=== PATIENT | female | born 1985 | race Caucasian/White ===

== ENCOUNTER 2019-01-03 10:16 | Emergency (ER) | payer OTHER ==
[2019-01-03 10:44] VITALS: BP 106/67; PULSE 82; TEMP 98.2; BMI 25.7
[2019-01-03] MEDS ORDERED: RANITIDINE HCL 150 MG TABLET (FP) ONE (11:17)
[2019-01-03] MEDS ORDERED: MAG HYDROX/AL HYDROX/SIMETH 30 ML UNIT-DOSE CUP ONE (11:18)
[2019-01-03] MEDS ORDERED: RANITIDINE HCL 150 MG TABLET (FP) PO ONE (11:18)
[2019-01-03] MEDS ORDERED: MAG HYDROX/AL HYDROX/SIMETH 30 ML UNIT-DOSE CUP PO ONE (11:18)
--- NOTE | 2019-01-03 11:19 | PDOC ---
History of Present Illness - General Chief Complaint: Pain Stated Complaint: ABD PAIN Time Seen by Provider: 01/03/19 11:02 History Source: Patient - History of Present Illness Timing/Duration: reports: intermittent Past History - Past Medical History Allergies/Adverse Reactions: Allergies Allergy/AdvReac Type Severity Reaction Status Date / Time No Known Allergies Allergy Verified 01/03/19 10:38 Home Medications: Ambulatory Orders Famotidine [Pepcid] 20 mg PO DAILY #14 tablet 01/03/19 COPD: No - Suicide/Smoking/Psychosocial Hx Smoking History: Never smoked Have you smoked in the past 12 months: No Hx Alcohol Use: No Drug/Substance Use Hx: No Substance Use Type: None Review of Systems - Review of Systems Constitutional: No: Chills, Fever ABD/GI: Yes: Diarrhea, Nausea, Abdominal cramping. No: Blood Streaked Bowels, Constipated, Rectal Bleeding, Vomiting : No: Dysuria, Flank Pain, Hematuria *Physical Exam - Vital Signs Last Vital Signs Temp Pulse Resp BP Pulse Ox 98.2 F 82 18 106/67 99 01/03/19 10:40 01/03/19 10:40 01/03/19 10:40 01/03/19 10:40 01/03/19 10:40 - Physical Exam General Appearance: Yes: Appropriately Dressed. No: Apparent Distress HEENT: positive: Normal Voice Neck: positive: Supple Respiratory/Chest: negative: Respiratory Distress Gastrointestinal/Abdominal: positive: Normal Bowel Sounds, Tender, Soft. negative: Distended, Guarding, Rebound Musculoskeletal: negative: CVA Tenderness Integumentary: positive: Dry, Warm Neurologic: positive: Fully Oriented, Alert, Normal Mood/Affect Moderate Sedation - Procedure Monitoring Vital Signs: Procedure Monitoring Vital Signs Temperature 98.2 F 01/03/19 10:40 Pulse Rate 82 01/03/19 10:40 Respiratory Rate 18 01/03/19 10:40 Blood Pressure 106/67 01/03/19 10:40 O2 Sat by Pulse Oximetry (%) 99 01/03/19 10:40 ED Treatment Course - LABORATORY CBC & Chemistry Diagram: 01/03/19 11:18 01/03/19 11:18 Medical Decision Making - Medical Decision Making 01/03/19 11:12 33 yo F, no sig hx, here w/ abd pain. Complaining of on and off epigastric pain with 3-4 episodes of non-bloody watery stool and nausea for 3 days. No vomiting, hematochezia, melena, fever or chills. Symptoms started shortly after eating pasta at restaurant. States her son ate the same and has similar symptoms. No recent travel or antibiotic use See exam Possibly gastroenteritis vs gastritis, unlikely biliary or pancreatitis, no ttp over mcburneys to suspect appy at this time Well dayan and stable w/ ttp to epigastrium -pain control -labs -reassess 01/03/19 13:00 Labs unremarkable. Pt reports sig improvement w/ meds nd able to mamta po. Pt non- tender on rpt abdominal exam. Will dc w/ supportive tx. Reasons to return d/w pt *DC/Admit/Observation/Transfer Diagnosis at time of Disposition: Epigastric abdominal pain Diarrhea Qualifiers: Diarrhea type: unspecified type Qualified Code(s): R19.7 - Diarrhea, unspecified - Discharge Dispostion Disposition: HOME Condition at time of disposition: Improved - Prescriptions Prescriptions: Famotidine [Pepcid] 20 mg PO DAILY #14 tablet - Referrals - Patient Instructions Printed Discharge Instructions: DI for Viral Gastroenteritis -- Adult Additional Instructions: Maintain adequate hydration, for the remainder of your symptoms, and eat as tolerated Take pepcid as directed Return for any worsening of symptoms Please follow up with your primary care physician as needed - Post Discharge Activity Forms/Work/School Notes: Back to Work
[2019-01-03 11:33] LABS: BASO % 0.4 % (0-2.0); EOS % 0.7 % (0-4.5); HEMOGLOBIN 14.2 GM/dL (10.7-15.3); LYMPH % 8.8 % (8-40); MCH 31.2 pg (25.7-33.7); MCHC 35.5 g/dl (32.0-36.0); MEAN CELL VOLUME 87.9 fl (80-96); MEAN PLT VOLUME 9.2 fl (7.5-11.1); MONO % 6.7 % (3.8-10.2); NEUT % 83.4 % (42.8-82.8); PLATELET COUNT 254 K/MM3 (134-434); RBC 4.55 M/mm3 (3.60-5.2); RDW 12.3 % (11.6-15.6)
[2019-01-03 12:05] LABS: HCG,QUALITATIVE URINE Negative
[2019-01-03 12:07] LABS: ALBUMIN 3.7 g/dl (3.4-5.0); ALK PHOS 98 U/L (45-117); ANION GAP 4 MMOL/L (8-16); BILIRUBIN,TOTAL 0.6 mg/dL (0.2-1); BLOOD UREA NITROGEN 9 mg/dL (7-18); CALCIUM 8.6 mg/dL (8.5-10.1); CHLORIDE 106 mmol/L (98-107); CO2 27 mmol/L (21-32); CREATININE 0.7 mg/dL (0.55-1.3); GLUCOSE,RANDOM 87 mg/dL (74-106); LIPASE 162 U/L (73-393); POTASSIUM 4.2 mmol/L (3.5-5.1); SGOT/AST 13 U/L (15-37); SGPT/ALT 27 U/L (13-61); SODIUM 136 mmol/L (136-145)
[2019-01-03 12:21] LABS: URINE APPEARANCE CLEAR; URINE BILIRUBIN NEGATIVE (<2.0 mg/dL); URINE COLOR STRAW; URINE GLUCOSE (UA) NEGATIVE (NEGATIVE); URINE KETONE NEGATIVE (NEGATIVE); URINE LEUK ESTERASE 1+ (NEGATIVE); URINE NITRITE NEGATIVE (NEGATIVE); URINE PROTEIN NEGATIVE (NEGATIVE); URINE UROBILINOGEN NEGATIVE mg/dL (0.2-1.0)
[2019-01-03 12:41] LABS: EPI CELLS RARE /HPF (FEW); URINE MUCUS RARE
== END 2019-01-03 13:10 | disposition home or self-care (01) ==
LOC: JER 10:16
DX: A08.4 Viral intestinal infection, unspecified (principal); B97.89 Other viral agents as the cause of diseases classified elsewhere
CPT/HCPCS: 36415; 80053; 81003; 81015; 83690; 84703; 85025; 99281-25

== ENCOUNTER 2019-05-01 09:07 | Emergency (ER) | payer OTHER ==
[2019-05-01 09:13] VITALS: TEMP 98; BMI 29.2
[2019-05-01] MEDS ORDERED: KETOROLAC TROMETHAMINE 60 MG/2 ML VIAL IM ONE (09:34)
[2019-05-01] MEDS ORDERED: KETOROLAC TROMETHAMINE 60 MG/2 ML VIAL ONE (09:44)
--- NOTE | 2019-05-01 10:07 | PDOC ---
History of Present Illness - General Chief Complaint: Chest Pain Stated Complaint: CHEST PAIN Time Seen by Provider: 05/01/19 09:28 History Source: Patient Exam Limitations: No Limitations - History of Present Illness Initial Comments: 05/01/19 10:07 33-year-old female presents to ED with complaints of left-sided chest soreness while at work today at around 6 AM. Patient states had no palpitations or shortness of breath was episodes. Patient states pain is worsened with movement and now is radiating to her left arm. Patient denies cardiac history, difficulty breathing, recent travel, recent illness or recent fall Presenting Symptoms: Chest Pain Timing/Duration: reports: constant Severity/Quality: reports: mild, aching Location: reports: substernal Chest Pain Radiation: reports: arms Activities at Onset: reports: none Prior Chest Pain/Cardiac Workup: reports: No prior chest pain Modifying Factors: improves with: movement Nitro Today/Relief: Yes: no nitro taken today Aspirin Received prior to arrival (Core Measure): Yes: no aspirin today Beta Norris given by EMS (Core Measure): No Beta Norris taken at Home (Core Measure): No Beta Norris indicated at this time? (Core Measure): No Associated Symptoms: Yes: Chest Pain/pressure Past History - Travel Traveled outside of the country in the last 30 days: No Close contact w/someone who was outside of country & ill: No - Past Medical History Allergies/Adverse Reactions: Allergies Allergy/AdvReac Type Severity Reaction Status Date / Time No Known Allergies Allergy Verified 05/01/19 09:10 Home Medications: Ambulatory Orders Famotidine [Pepcid] 20 mg PO DAILY #14 tablet 01/03/19 COPD: No - Immunization History Immunization Up to Date: Yes - Suicide/Smoking/Psychosocial Hx Smoking History: Never smoked Have you smoked in the past 12 months: No Hx Alcohol Use: No Drug/Substance Use Hx: No Substance Use Type: None Patient Lives Alone: No Lives with/in: spouse/SO Review of Systems - Review of Systems Able to Perform ROS?: No Is the patient limited Indonesian proficient: No Constitutional: No: Symptoms Reported HEENTM: No: Symptoms Reported Respiratory: No: Symptoms reported Cardiac (ROS): Yes: Chest Pain. No: Lightheadedness, Palpitations, Syncope ABD/GI: No: Symptoms Reported : No: Symptoms Reported Musculoskeletal: Yes: Muscle Pain (left upper arm achiness/soreness) Integumentary: No: Symptoms Reported Neurological: No: Symptoms reported Hematologic/Lymphatic: No: Symptoms Reported *Physical Exam - Vital Signs Last Vital Signs Temp Pulse Resp BP Pulse Ox 98 F 72 17 105/66 100 05/01/19 09:10 05/01/19 09:10 05/01/19 09:10 05/01/19 09:10 05/01/19 09:53 - Physical Exam General Appearance: Yes: Nourished, Appropriately Dressed. No: Apparent Distress HEENT: negative: Pale Conjunctivae Neck: positive: Supple Respiratory/Chest: positive: Chest Tender (left upper anterior chest at second to fourth intercostal spaces extending from sternum to the lateral aspect of midclavicular line), Lungs Clear, Normal Breath Sounds. negative: Respiratory Distress, Accessory Muscle Use Cardiovascular: positive: Regular Rhythm, Regular Rate. negative: Murmur Gastrointestinal/Abdominal: positive: Soft. negative: Tenderness Extremity: positive: Normal Inspection, Normal Range of Motion. negative: Tender Integumentary: positive: Normal Color, Warm, Moist Neurologic: positive: Motor Strength 5/5 (ambulatory) Heart Score/ECG Review - ECG Intrepretation Rhythm: Regular Rhythm (rate 69, sinus arrhymia. no st elevation/depression) ED Treatment Course - LABORATORY CBC & Chemistry Diagram: 05/01/19 09:51 05/01/19 09:54 - ADDITIONAL ORDERS Additional order review: Laboratory Results 05/01/19 09:54 Sodium 140 Potassium 4.3 Chloride 108 H Carbon Dioxide 28 Anion Gap 4 L BUN 12.4 Creatinine 0.7 Est GFR (CKD-EPI)AfAm 132.87 Est GFR (CKD-EPI)NonAf 114.64 Random Glucose 99 Calcium 9.2 Total Bilirubin 0.2 AST 15 ALT 25 Alkaline Phosphatase 92 Creatine Kinase 81 Troponin I < 0.02 Total Protein 8.3 H Albumin 4.0 05/01/19 09:51 RBC 4.68 MCV 85.6 MCHC 34.7 RDW 12.8 MPV 9.2 Neutrophils % 85.0 H Lymphocytes % 11.2 D Monocytes % 3.1 L Eosinophils % 0.2 Basophils % 0.5 - Medications Given in the ED: ED Medications Discontinued Medications Generic Name Dose Route Start Last Admin Trade Name Freq PRN Reason Stop Dose Admin Ketorolac Tromethamine 60 mg 05/01/19 09:34 05/01/19 09:55 Toradol Injection - IM 05/01/19 09:35 60 mg ONCE ONE Administration Medical Decision Making - Medical Decision Making 05/01/19 10:03 Plan: Left-sided chest soreness that began while at work shortly after lifting items at work. Patient states pain is not radiating to left arm which describes an aching soreness sensation. Patient has no other complaints at this time Exam: Reproducible left-sided chest pain over the second to fourth intercostal space anteriorly Plan: EKG, labs and Toradol 05/01/19 11:02 Laboratory Tests 05/01/19 05/01/19 09:51 09:54 WBC 8.2 RBC 4.68 Hct 40.1 MCV 85.6 Neutrophils % 85.0 H Monocytes % 3.1 L Sodium 140 Potassium 4.3 Chloride 108 H Carbon Dioxide 28 Anion Gap 4 L Calcium 9.2 AST 15 ALT 25 Creatine Kinase 81 Troponin I < 0.02 Total Protein 8.3 H Albumin 4.0 Patient states symptoms have improved. Patient be discharged home with costochondritis information *DC/Admit/Observation/Transfer Diagnosis at time of Disposition: Costochondritis - Discharge Dispostion Disposition: HOME Condition at time of disposition: Improved - Referrals - Patient Instructions Printed Discharge Instructions: DI for Costochondritis Additional Instructions: Please take Tylenol as prescribed. Avoid movements that trigger discomfort. If symptoms worsen despite above recommendations, please return to ED and follow -up with your physician. - Post Discharge Activity
[2019-05-01 10:16] LABS: BASO % 0.5 % (0-2.0); EOS % 0.2 % (0-4.5); HEMATOCRIT 40.1 % (32.4-45.2); HEMOGLOBIN 13.9 GM/dL (10.7-15.3); LYMPH % 11.2 % (8-40); MCH 29.7 pg (25.7-33.7); MCHC 34.7 g/dl (32.0-36.0); MEAN CELL VOLUME 85.6 fl (80-96); MEAN PLT VOLUME 9.2 fl (7.5-11.1); MONO % 3.1 % (3.8-10.2); PLATELET COUNT 287 K/MM3 (134-434); RBC 4.68 M/mm3 (3.60-5.2); RDW 12.8 % (11.6-15.6); WHITE BLOOD COUNT 8.2 K/mm3 (4.0-10.0)
[2019-05-01 10:54] LABS: ALK PHOS 92 U/L (45-117); ANION GAP 4 MMOL/L (8-16); BILIRUBIN,TOTAL 0.2 mg/dL (0.2-1); BLOOD UREA NITROGEN 12.4 mg/dL (7-18); CALCIUM 9.2 mg/dL (8.5-10.1); CHLORIDE 108 mmol/L (98-107); CO2 28 mmol/L (21-32); CREATININE 0.7 mg/dL (0.55-1.3); GLUCOSE,RANDOM 99 mg/dL (74-106); POTASSIUM 4.3 mmol/L (3.5-5.1); SGOT/AST 15 U/L (15-37); SGPT/ALT 25 U/L (13-61); SODIUM 140 mmol/L (136-145); TOT PROT 8.3 g/dl (6.4-8.2)
[2019-05-01 11:05] VITALS: BP 108/59; PULSE 84
--- NOTE | 2019-05-01 14:37 | EKG ---
Test Reason : Blood Pressure : / mmHG Vent. Rate : 069 BPM Atrial Rate : 069 BPM P-R Int : 138 ms QRS Dur : 100 ms QT Int : 380 ms P-R-T Axes : 065 067 034 degrees QTc Int : 407 ms NORMAL SINUS RHYTHM WITH SINUS ARRHYTHMIA INCOMPLETE RIGHT BUNDLE BRANCH BLOCK BORDERLINE ECG NO PREVIOUS ECGS AVAILABLE Confirmed by NICK RENDON, KIKE ([id number]) on 05/01/2019 2:37:07 PM Referred By: Confirmed By:KIKE ROMERO MD
== END 2019-05-01 11:07 | disposition home or self-care (01) ==
LOC: JER 09:07
PROC: 3E0233Z Introduction of Anti-inflammatory into Muscle, Percutaneous Approach (ICD-10-PCS; principal; 2019-05-01)
DX: M94.0 Chondrocostal junction syndrome [Tietze] (principal)
CPT/HCPCS: 36415; 80053; 82550; 84484; 85025; 93005; 93010; 96372; 99283-25

== ENCOUNTER 2021-12-24 17:01 | Emergency (ER) | payer OTHER ==
[2021-12-24 17:31] VITALS: BP 114/61; PULSE 77; TEMP 97.9; BMI 31.4
[2021-12-24] MEDS ORDERED: KETOROLAC TROMETHAMINE 30 MG/1 ML VIAL IM ONE (19:07)
[2021-12-24] MEDS ORDERED: KETOROLAC TROMETHAMINE 30 MG/1 ML VIAL ONE (19:23)
== END 2021-12-24 21:41 | disposition home or self-care (01) ==
LOC: JERFT 17:01
PROC: 3E023GC Introduction of Other Therapeutic Substance into Muscle, Percutaneous Approach (ICD-10-PCS; principal; 2021-12-24)
DX: S80.01XA Contusion of right knee, initial encounter (principal); W01.0XXA Fall on same level from slipping, tripping and stumbling without subsequent striking against object, initial encounter
CPT/HCPCS: 73564-TC-RT-FY; 99284-25

== ENCOUNTER 2023-01-01 08:46 | Emergency (ER) | payer OTHER ==
[2023-01-01 09:01] VITALS: BP 120/81; PULSE 93; RESP 20; TEMP 98.8; BMI 30.2
[2023-01-01] MEDS ORDERED: ALBUTEROL SO4 2.5/IPRATROPIUM 0.5 INH SOL 3 ML VIAL.NEB. NEB ONE ×2 (10:14→10:19)
[2023-01-01] MEDS ORDERED: predniSONE 20 MG TABLET (UD) PO ONE (10:14)
[2023-01-01] MEDS ORDERED: predniSONE 20 MG TABLET (UD) ONE (10:19)
== END 2023-01-01 12:27 | disposition home or self-care (01) ==
LOC: JERFT 08:46 → JER 08:46 → JERFT 12:27
PROC: 3E0F7GC Introduction of Other Therapeutic Substance into Respiratory Tract, Via Natural or Artificial Opening (ICD-10-PCS; principal; 2023-01-01)
DX: J45.21 Mild intermittent asthma with (acute) exacerbation (principal); Z20.822 Contact with and (suspected) exposure to COVID-19
CPT/HCPCS: 0241U-QW; 71046-TC-FY; 99284-25

== ENCOUNTER 2023-09-17 21:04 | Emergency (ER) | payer OTHER ==
[2023-09-17 21:10] VITALS: RESP 18; TEMP 98; BMI 30.2
[2023-09-17] MEDS ORDERED: ACETAMINOPHEN 325 MG TABLET (FP) PO ONE (22:04)
[2023-09-17] MEDS ORDERED: LIDOCAINE 5% TOPICAL PATCH TP ONE (22:05)
[2023-09-17] MEDS ORDERED: diazePAM 5 MG TABLET PO ONE (22:12)
[2023-09-17] MEDS ORDERED: ACETAMINOPHEN 325 MG TABLET (FP) ONE (22:15)
[2023-09-17] MEDS ORDERED: diazePAM 5 MG TABLET ONE (22:15)
[2023-09-17] MEDS ORDERED: LIDOCAINE 4% PATCH TP ONE (22:15)
[2023-09-17 22:18] LABS: EPI CELLS >36 /uL (0-25.1); HYALINE CASTS 1 /uL (0-3.1); URINE APPEARANCE TURBID; URINE BACTERIA 574 /uL (0-1359); URINE BILIRUBIN NEGATIVE (NEGATIVE); URINE COLOR YELLOW; URINE GLUCOSE (UA) NEGATIVE (NEGATIVE); URINE KETONE NEGATIVE (NEGATIVE); URINE LEUK ESTERASE TRACE (NEGATIVE); URINE NITRITE NEGATIVE (NEGATIVE); URINE PROTEIN NEGATIVE (NEGATIVE); URINE RBC 12 /uL (0-23.9); URINE WBC 45 /uL (0-25.8)
[2023-09-17] MEDS ORDERED: KETOROLAC TROMETHAMINE 15 MG/ML VIAL IM ONE (22:39)
[2023-09-17] MEDS ORDERED: KETOROLAC TROMETHAMINE 15 MG/ML VIAL ONE (22:42)
[2023-09-17 23:13] VITALS: BP 112/64; PULSE 80
== END 2023-09-17 23:13 | disposition home or self-care (01) ==
LOC: JER 21:04
PROC: 3E0233Z Introduction of Anti-inflammatory into Muscle, Percutaneous Approach (ICD-10-PCS; principal; 2023-09-17)
DX: M54.41 Lumbago with sciatica, right side (principal)
CPT/HCPCS: 81003; 84703; 87086; 99284-25

== ENCOUNTER 2023-09-29 04:51 | Emergency (ER) | payer OTHER ==
[2023-09-29 05:12] VITALS: BP 120/64; PULSE 113; RESP 20; TEMP 99.7; BMI 30.2
[2023-09-29] MEDS ORDERED: DEXAMETHASONE LIQUID 0.5 MG/5 ML PO ONE (05:47)
[2023-09-29] MEDS ORDERED: ALBUTEROL SO4 2.5/IPRATROPIUM 0.5 INH SOL 3 ML VIAL.NEB. NEB ONE ×2 (05:47→05:57)
[2023-09-29] MEDS ORDERED: DEXAMETHASONE SOD PHOSPHATE 10 MG/1 ML VIAL ONE (05:58)
[2023-09-29] MEDS ORDERED: ACETAMINOPHEN 500 MG TABLET (FP) PO ONE (06:40)
[2023-09-29] MEDS ORDERED: ONDANSETRON *ODT* 4 MG TABLET SL ONE (06:41)
[2023-09-29] MEDS ORDERED: ACETAMINOPHEN 500 MG TABLET (FP) ONE (06:49)
[2023-09-29] MEDS ORDERED: ONDANSETRON *ODT* 4 MG TABLET ONE (06:49)
== END 2023-09-29 07:16 | disposition home or self-care (01) ==
LOC: JER 04:51
PROC: 3E0F7GC Introduction of Other Therapeutic Substance into Respiratory Tract, Via Natural or Artificial Opening (ICD-10-PCS; principal; 2023-09-29)
DX: R50.9 Fever, unspecified (principal); R05.9 Cough, unspecified; R11.10 Vomiting, unspecified; J06.9 Acute upper respiratory infection, unspecified; J45.901 Unspecified asthma with (acute) exacerbation; B34.9 Viral infection, unspecified; Z20.822 Contact with and (suspected) exposure to COVID-19
CPT/HCPCS: 0241U-QW; 99283-25; Q0162